=== PATIENT | female | born 1955 | race Caucasian/White ===

== ENCOUNTER 2023-03-09 11:08 | Day surgery (SDC) | payer OTHER, MEDICARE ==
[2023-03-09] VITALS (10 sets, daily range): BP systolic 130–167; BP diastolic 78–97
[~2023-03-09] VITALS: Ht 157.5 cm; Wt 52.9 kg
--- NOTE | 2023-03-09 12:12 | NUR ---
[facility] via wheelchair. History, Chart, Medications and Allergies reviewed before start of procedure.Lungs clear T/O to Auscultation.Moist, nonproductive cough noted-pt states that it is from her "allergies." Patient confirms NPO status and agrees with scheduled surgery. Patient States Post-Procedure ride home has been arranged.
--- NOTE | 2023-03-09 12:45 | NUR ---
DR. BROUSSARD AT BEDSIDE TO PLACE BLOCK TO LEFT LOWER EXTREMITY. PT MED WITH FENTANYL 50 MCG IVP X 1 AND VERSED 2 MG IVP X 1 FOR PROCEDURE. SEE ANESTHESIA RECORD FOR MED DOCUMENTATION.
--- NOTE | 2023-03-09 15:57 | NUR ---
Patient up with SBA. Gait steady with minimal weight bearing to left ankle. Discharge instructions reviewed with patient. Patient verbalizes understanding. Copy given to patient to take home. Patient States Post-Procedure ride home has been arranged. Discharged via wheelchair to private car for ride home.
== END 2023-03-09 15:47 | disposition home or self-care (01) ==
LOC: ORSCMMR 11:08 → ORD 12:30 → ORSCMMR 12:30
PROVIDERS: Orthopaedic Surgery
PROC: 0QSK04Z Reposition Left Fibula with Internal Fixation Device, Open Approach (ICD-10-PCS; principal; 2023-03-09 12:30)
PROC: 0QSHXZZ Reposition Left Tibia, External Approach (ICD-10-PCS; principal; 2023-03-09 12:30)
DX: S82.842A Displaced bimalleolar fracture of left lower leg, initial encounter for closed fracture (principal); W01.0XXA Fall on same level from slipping, tripping and stumbling without subsequent striking against object, initial encounter; F17.210 Nicotine dependence, cigarettes, uncomplicated; Z85.72 Personal history of non-Hodgkin lymphomas
CPT/HCPCS: C1713; J0690; J1100; J1885; J2250; J2405; J2704; J3010; J7120

== ENCOUNTER 2025-02-28 11:32 | Inpatient (IN) | payer OTHER ==
[~2025-02-28] VITALS: Ht 160 cm; Wt 54.6 kg
[2025-02-28 12:14] LABS: BASOPHILS ABSOLUTE AUTO 0.03 K/mm3 (0.00-0.23); BASOPHILS PERCENT AUTO 0 % (0-2); EOSINOPHILS PERCENT AUTO 0 % (0-6); Hematocrit 40.1 % (33.0-51.0); Hemoglobin 14.5 g/dL (11.5-16.0); IMMATURE GRAN ABSOLUTE AUTO 0.06 K/mm3 (0.00-0.10); IMMATURE GRAN PERCENT AUTO 1 % (0-1); LYMPHOCYTES ABSOLUTE AUTO 0.93 K/mm3 (0.84-5.20); LYMPHOCYTES PERCENT AUTO 9 % (21-46); MONOCYTES ABSOLUTE AUTO 0.97 K/mm3 (0.16-1.47); MONOCYTES PERCENT AUTO 10 % (4-13); Mean Corpuscular HGB 36.3 pg (26.0-34.0); Mean Corpuscular HGB Conc 36.2 g/dL (31.5-36.5); Mean Corpuscular Volume 101 fL (80-100); NEUTROPHILS ABSOLUTE AUTO 8.15 K/mm3 (1.96-9.15); NEUTROPHILS PERCENT AUTO 80 % (41-73); Platelet Count 253 K/mm3 (150-400); RDW Coefficient Variation 11.9 % (11.7-14.2); RDW Standard Deviation 43.6 fL (35.1-46.3); Red Blood Cell Count 3.99 M/mm3 (3.80-5.20); White Blood Cell Count 10.14 K/mm3 (4.00-11.30)
[2025-02-28 12:22] LABS: Source, Urine Clean Catch
[2025-02-28 12:25] LABS: Appearance, Urine Cloudy (Clear); Bilirubin, Urine Neg (Neg); Blood, Urine 4+ (Neg); Color, Urine Yellow (P-Yellow); Glucose Qualitative, Urine Neg (Neg); Ketones, Urine 3+ (Neg); Leukocyte Esterase, Urine 2+ (Neg); Nitrite, Urine Pos (Neg); Protein, Urine 2+ (Neg); Urobilinogen, Urine NORM (Normal)
[2025-02-28 12:29] LABS: International Normalized Ratio 0.91; Prothrombin Time Results 9.8 Sec (9.7-11.5)
[2025-02-28 12:33] LABS: White Blood Cells, Urine 50-100 /hpf (0-5)
[2025-02-28 12:34] LABS: Bacteria Many /hpf; Squamous Epithelial Cells Few /hpf (Few)
[2025-02-28 12:41] LABS: U Amphetamine Screen Not Detected; U Barbituate Screen Not Detected; U Benzodiazapine Screen Not Detected; U Buprenorphine Screen Not Detected; U Cannabinoids Screen Not Detected; U Cocaine Screen Not Detected; U Methadone Screen Not Detected; U Methamphetamine Screen Not Detected; U Opiates Screen Not Detected; U Oxycodone Screen Not Detected; U Phencyclidine Screen Not Detected
[2025-02-28 12:46] LABS: Albumin, Blood 3.7 g/dL (3.4-5.0); Albumin/Globulin Ratio 1.5 (0.8-1.8); Bilirubin, Total 0.4 mg/dL (0.1-1.0); Bun/Creatinine Ratio 22.1 (12.0-20.0); Calcium, Blood 9.1 mg/dL (8.5-10.1); Creatinine, Blood 0.86 mg/dL (0.40-1.00); Globulin, Blood 2.5 g/dL (2.2-4.0); Potassium, Blood 3.6 mmol/L (3.5-5.5); Thyroid Stimulating Hormone 0.88 uIU/mL (0.360-4.800); Total Protein, Blood 6.2 g/dL (6.4-8.2)
[2025-02-28] MEDS ORDERED: CefTRIAXone Sodium 1,000 MG in NS 100 ML IV ONE (13:20)
[2025-02-28 18:03] VITALS: BP 157/81
--- NOTE | 2025-02-28 18:43 | NUR ---
pt arrived to 351 via cart from ED, she was able to stand with assist, moved very slow, she is a/ox3, forgetful, pleasant and cooperative with care, follows commands well, denies pain at this time, right shoulder is sore if she attempts to move it, has significant bruise to right shoulder, lungs are clear in upper field on left side, dim on right side all judge, left base is dim, on r/a, no cough noted, hrr, no edema noted, ppp +1, cap refill<3 sec, vs stable, afebrile, piv to rac site is clear and patent, btx4, abd flat soft nontender, voids via bsc, skin c/w/d, except for bruising, sabrina, needs assist with transfer two person assist, and shuffles her feet, reports she takes no medications at this time. oriented to room layout and call system.
[2025-02-28 19:45] VITALS: BP 148/81
[2025-03-01 04:50] VITALS: BP 139/83
--- NOTE | 2025-03-01 05:15 | NUR ---
PT A&O X2, CAN NOT FOLLOW SIMPLE DIRECTION, DOES NOT PROTECT RIGHT SHOULDER. SLING PLACED THIS AM. PT WITH PAIN ONLY IF ARM IS PALPATATED. PT HAS SHUFFLING GAIT, ASSIST WITH ALL MOBILITY. SCD'S WORN PART OF NIGHT. VS WNL, PT CONTINENT AT FIRST OF SHIFT AND THEN HAD INCONTINENT EPISODE LATER. DOES NOT USE CALL SYSTEM APPROPRIATLY. PT LIVES ALONE, AND FAMILY MAY NEED TO INCREASE ASSISTANCE.
[2025-03-01 05:35] LABS: BASOPHILS ABSOLUTE AUTO 0.03 K/mm3 (0.00-0.23); BASOPHILS PERCENT AUTO 0 % (0-2); EOSINOPHILS ABSOLUTE AUTO 0.06 K/mm3 (0.00-0.68); EOSINOPHILS PERCENT AUTO 1 % (0-6); Hematocrit 36.9 % (33.0-51.0); Hemoglobin 13.3 g/dL (11.5-16.0); IMMATURE GRAN ABSOLUTE AUTO 0.07 K/mm3 (0.00-0.10); IMMATURE GRAN PERCENT AUTO 1 % (0-1); LYMPHOCYTES ABSOLUTE AUTO 1.49 K/mm3 (0.84-5.20); LYMPHOCYTES PERCENT AUTO 17 % (21-46); MONOCYTES PERCENT AUTO 9 % (4-13); Mean Corpuscular HGB 36.4 pg (26.0-34.0); Mean Corpuscular Volume 101 fL (80-100); Mean Platelet Volume 9.2 fL (9.1-12.4); NEUTROPHILS ABSOLUTE AUTO 6.17 K/mm3 (1.96-9.15); NEUTROPHILS PERCENT AUTO 72 % (41-73); Platelet Count 215 K/mm3 (150-400); RDW Coefficient Variation 11.8 % (11.7-14.2); RDW Standard Deviation 43.3 fL (35.1-46.3); Red Blood Cell Count 3.65 M/mm3 (3.80-5.20); White Blood Cell Count 8.62 K/mm3 (4.00-11.30)
[2025-03-01 05:55] LABS: Albumin, Blood 3.1 g/dL (3.4-5.0); Albumin/Globulin Ratio 1.3 (0.8-1.8); Bilirubin, Total 0.5 mg/dL (0.1-1.0); Bun/Creatinine Ratio 20.2 (12.0-20.0); Calcium, Blood 8.1 mg/dL (8.5-10.1); Creatinine, Blood 0.65 mg/dL (0.40-1.00); Globulin, Blood 2.3 g/dL (2.2-4.0); Potassium, Blood 3.1 mmol/L (3.5-5.5); Total Protein, Blood 5.4 g/dL (6.4-8.2)
[2025-03-01 07:39] VITALS: BP 134/78
[2025-03-01] MEDS ORDERED: Potassium Chloride 20 MEQ TabCR PO ONE (09:00)
[2025-03-01] MEDS ORDERED: Enoxaparin 30 MG/0.3 ML SYR SC SCH (09:00)
[2025-03-01] MEDS ORDERED: Enoxaparin 40 MG/0.4 ML SYR SC SCH (09:00)
--- NOTE | 2025-03-01 12:16 | NUR ---
REFERRAL CONTACTED DR. FERNÁNDEZ CONTACTED ABOUT REFERRAL
[2025-03-01] MEDS ORDERED: CefTRIAXone Sodium 1,000 MG in NS 100 ML IV SCH (14:29)
[2025-03-01 14:32] VITALS: BP 130/77
[2025-03-01] MEDS ORDERED: NS 250 ML IV PRN (15:25)
--- NOTE | 2025-03-01 16:17 | NUR ---
PLAN- 1] TT DR FERNÁNDEZ WHO SAW PATIENT AND STATED THAT IF SHE DOESNT WANT TO WEAR THE SLING THAT ITS OK AND THAT NO IMOBILIZER NEEDED. 2] TT OT, THEY WILL EVAL ON TUESDAY DUE TO STAFFING AND CURRENT INFECTION 3] TT FAMILY THEY ARE GLAD FOR CHANCE FOR PATIENT TO GET IV ABX AND HOPEFULLY IMPROVE BEFOR EVAL. THEY -[facility]- WILL BE HERE NOON 03/02 TO VISIT WITH CM OR ON TUESDAY 4] TT FLOOR SUP ABOUT NECESSITY OF A SITTER TO KEEP PT SAFE IN CURRENT MENTAL AND PHYSICAL CONDITION.
[2025-03-01 19:25] VITALS: BP 157/94
--- NOTE | 2025-03-02 04:36 | NUR ---
Mover Helper Shift Summary Patient admitted for UTI. Alert and oriented x2. Patient has pure wick in place. Broken right collar bone with bruising on shoulder and sling in place although not frequently used. Patient has sitter for frequently attempting to get out of bed and frequent urination. Patient resting quietly with few interruptions. Call light within reach. Bed rails up x3. Bed in lowest position for safety. Will continue to monitor.
--- NOTE | 2025-03-02 05:08 | NUR ---
NURSE PRECEPTOR STUDENT NOTE. I HAVE WORKED ALONG SIDE OF AND HAD READ HER DOCUMENTATION AND I AGREE WITH THE ABOVE INFO
[2025-03-02 05:41] VITALS: BP 145/85
[2025-03-02 06:09] LABS: BASOPHILS ABSOLUTE AUTO 0.03 K/mm3 (0.00-0.23); BASOPHILS PERCENT AUTO 0 % (0-2); EOSINOPHILS ABSOLUTE AUTO 0.04 K/mm3 (0.00-0.68); EOSINOPHILS PERCENT AUTO 1 % (0-6); Hematocrit 39.8 % (33.0-51.0); IMMATURE GRAN ABSOLUTE AUTO 0.06 K/mm3 (0.00-0.10); IMMATURE GRAN PERCENT AUTO 1 % (0-1); LYMPHOCYTES ABSOLUTE AUTO 1.42 K/mm3 (0.84-5.20); LYMPHOCYTES PERCENT AUTO 18 % (21-46); MONOCYTES ABSOLUTE AUTO 0.92 K/mm3 (0.16-1.47); MONOCYTES PERCENT AUTO 12 % (4-13); Mean Corpuscular HGB Conc 35.2 g/dL (31.5-36.5); Mean Corpuscular Volume 100 fL (80-100); Mean Platelet Volume 9.1 fL (9.1-12.4); NEUTROPHILS ABSOLUTE AUTO 5.46 K/mm3 (1.96-9.15); NEUTROPHILS PERCENT AUTO 69 % (41-73); Platelet Count 245 K/mm3 (150-400); RDW Coefficient Variation 11.6 % (11.7-14.2); RDW Standard Deviation 42.3 fL (35.1-46.3); White Blood Cell Count 7.93 K/mm3 (4.00-11.30)
[2025-03-02 06:40] LABS: Bun/Creatinine Ratio 12.9 (12.0-20.0); Calcium, Blood 8.6 mg/dL (8.5-10.1); Creatinine, Blood 0.62 mg/dL (0.40-1.00); Potassium, Blood 3.6 mmol/L (3.5-5.5)
[2025-03-02 07:37] VITALS: BP 165/79
[2025-03-02] MEDS ORDERED: Folic Acid 1 MG TAB PO SCH (12:00)
[2025-03-02] MEDS ORDERED: Thiamine HCl 100 MG Tab PO SCH (12:00)
[2025-03-02] MEDS ORDERED: Losartan Potassium 25 MG Tab PO SCH (12:00)
[2025-03-02] MEDS ORDERED: HyDROXyzine HCl 25 MG Tab PO PRN (14:50)
[2025-03-02] MEDS ORDERED: HydrALAZINE HCl 25 MG Tab PO PRN (14:50)
[2025-03-02 15:34] VITALS: BP 138/86
[2025-03-02] MEDS ORDERED: QUEtiapine Fumarate 25 MG Tab PO PRN (16:55)
--- NOTE | 2025-03-02 16:55 | NUR ---
SHIFT SUMMARY PT AO TO SELF, 1 ASSIST WITH THE FWW. DOES NOT FOLLOW DIRECTIONS WELL. IMPULSIVE, 1:1 SITTER AT THE BS. PT UP TO CHAIR AND BACK TO BED AGAIN SEVERAL TIMES. MEDICATED PER THE EMAR. DOES NOT CALL. IRRITABLE WITH STAFF. BA ON. REPOSITIONS SELF IN BED. DOES NOT USE SLING, CANNOT SEEM TO REMEMBER TO USE IT. PROVIDER AWARE OF ALL OF THE ABOVE. CALL LIGHT WITHIN REACH, BED LOCKED AND IN THE LOWEST POSITION. WILL REPORT TO ONCOMING NURSE.
[2025-03-02] MEDS ORDERED: Nicotine 14 MG PATCH TOP SCH (17:10)
[2025-03-02 19:55] VITALS: BP 146/83
--- NOTE | 2025-03-03 04:11 | NUR ---
Human Capital Consultant Shift Summary Patient admitted for UTI. Patient started the night alert and oriented to self and place. As the night progressed the patient became less oriented and was only oriented to self. Patient was having hallucinations of being in [place]. Patient has a broken right clavical with a large bruise on right shoulder. Patient refused parts of assessment. Patient agitated with staff, frequenlty cursing at them although apologizing after. Resting quietly intermittenly with one to one sitter. agitation increased and sitter walked patient with walker into the hallway and back to bed. Currently watching TV in bed. Call light in reach. Bed rails up x3. Will continue to monitor.
[2025-03-03 04:15] VITALS: BP 143/87
--- NOTE | 2025-03-03 04:23 | NUR ---
NURSE STUDENT PRECEPTOR NOTE. I HAVE WORKED ALONG SIDE OF/WITH STUDENT AND HAVE READ AND AGREE WITH HER DOCUMENTATION.
[2025-03-03 06:02] LABS: Albumin, Blood 3.1 g/dL (3.4-5.0); Albumin/Globulin Ratio 1.1 (0.8-1.8); Bilirubin, Total 0.4 mg/dL (0.1-1.0); Calcium, Blood 8.8 mg/dL (8.5-10.1); Creatinine, Blood 0.6 mg/dL (0.40-1.00); Globulin, Blood 2.8 g/dL (2.2-4.0); Potassium, Blood 3.3 mmol/L (3.5-5.5); Total Protein, Blood 5.9 g/dL (6.4-8.2)
[2025-03-03] MEDS ORDERED: Potassium Chloride 20 MEQ TabCR PO ONE (09:00)
[2025-03-03 12:02] VITALS: BP 120/72
[2025-03-03 15:21] VITALS: BP 113/68
--- NOTE | 2025-03-03 17:25 | NUR ---
SHIFT SUMMARY PT AOX2, 1 ASSIST WITH THE FWW. LESS IMPULSIVE THIS SHIFT BUT STILL CONFUSED. 1:1 SITTER. PT HAS HAD NO ACUTE COMPLAINTS, SHE HAS SLEPT MOST OF THE MORNING. REPOSITIONED THROUGHOUT THE SHIFT. CALL LIGHT WITHIN REACH, BED LOCKED IN THE LOWEST POSITION.
[2025-03-03 19:16] VITALS: BP 127/75
[2025-03-03] MEDS ORDERED: QUEtiapine Fumarate 50 MG TAB PO SCH (21:00)
[2025-03-04 04:08] VITALS: BP 102/72
--- NOTE | 2025-03-04 04:11 | NUR ---
PROGRESS MAN SHIFT SUMMARY PATIENT ADMITTED FOR UTI. ALERT AND ORIENTED X2. EASILY AGITATED WITH STAFF. SEROQUEL GIVEN TO HELP WITH AGITATION. PATIENT WALKED IN THE MU[address] WAY WITH WALKER AND STAFF ASSISTANCE AND BECAME AGITATED WHEN STAFF REFUSED TO LET HER WALK OUTSIDE. PATIENT RESTED QUIETLY IN HER BED FOR PART OF THE NIGHT, NOW RESTING IN RECLINER. CHAIR ALARM ON FOR SAFETY. CALL LIGHT WITHIN REACH. WILL CONTINUE TO MONITOR.
--- NOTE | 2025-03-04 04:56 | NUR ---
NURSE STUDENT PRECEPTOR NOTE I HAVE WORKED ALONG SIDE OF AND WITH STUDENT AND HAVE READ AND AGREE WITH HER DOCUMENTATION
[2025-03-04 07:21] VITALS: BP 129/89
[2025-03-04 15:16] VITALS: BP 121/79
--- NOTE | 2025-03-04 17:16 | NUR ---
SHIFT SUMMARY NO ACUTE CHANGES, A/Ox2-3 WITH INTERMITTENT CONFUSION AND EASILY AGITATED AT TIMES. PT DENIES PAIN. TREATED FOR AGITATION X1 PER EMAR - PT VERBALLY AGRESSIVE AND AGITATED SHE COULD NOT LEAVE FACILITY TO SMOKE A CIGARETTE. PT SCORED 11/30 ON MME - PLAN FOR PT TO DISCHARGE WITH 24/7 CARE PROVIDED BY FAMILY AND POSSIBLE NEED FOR GUARDIANSHIP. LIGHT ARMORED RECONNAISSANCE OFFICER WORKING WITH FAMILY. GOOD APPETITE. PT IS FORGETFUL TO LIMITATIONS - BED ALARM OR CHAIR ALARM MUST BE IN PLACE FOR PT SAEFTY. FORGETS TO USE FWW. PT CURRENTLY USING RESTROOM WITH ANDROID FRAMEWORK DEVELOPER ASSISTANCE.
[2025-03-04 20:54] VITALS: BP 129/83
--- NOTE | 2025-03-05 05:28 | NUR ---
SHIFT SUMMARY PT HAS BEEN RESTING COMFORTABLY IN BED OVERNIGHT. PT HAS BEEN AOX3, CALM AND COOPERATIVE, ALBEIT FORGETFUL TO LIMITATIONS OFTEN. PT HAS BEEN REDIRECTABLE. SHE HAS BEEN 1PA W/ FWW. PT HAS HAD NO COMPLAINTS. NO ACUTE EVENTS OVERNIGHT.
[2025-03-05 06:13] VITALS: BP 118/74
[2025-03-05 07:33] VITALS: BP 136/81
--- NOTE | 2025-03-05 10:41 | NUR ---
SONYA CONSULT CALL TO DR. HASSAN TO FOLLOW UP ON GUARDIANSHIP CONSULT SENT TO ER YESTERDAY. VOICEMAIL LEFT ON CELL PHONE INFORMING OF ROOM NUMBER, INTENT TO DISCHARGE TODAY, AND REQUEST FOR CALL BACK.
[2025-03-05] MEDS ORDERED: FOLI1 PO (11:47)
[2025-03-05] MEDS ORDERED: LOSA25 PO (11:47)
[2025-03-05] MEDS ORDERED: Seroquel Xr50 MG PO (11:48)
[2025-03-05] MEDS ORDERED: B-1100 M2 PO (11:49)
[2025-03-05] MEDS ORDERED: Acetaminophen650 M1 PO (11:50)
--- NOTE | 2025-03-05 12:18 | NUR ---
THIS RN SPOKE WITH DR. MAY ON PHONE WHO REPORTS HE WILL SEE PT AFTER LUNCH ON 03/05/25.
--- NOTE | 2025-03-05 12:37 | NUR ---
NEW PCP SPOKE WITH SON TATIANA. PATIENT ESTABLISHED CARE WITH [facility] IN [place] FOR PCP. [facility] REQUESTED FOR DISCHARGE MEDICATIONS. CHART UPDATED.
--- NOTE | 2025-03-05 15:44 | NUR ---
PT DISCHARGED TO [facility] HOME. PT UNFIT TO CARE FOR SELF AND AGREES TO BE DISCHARGED TO FAMILY'S HOME AND [facility] AND SIGNIFICANT OTHER AGREE TO PROVIDE CARE. DISCHARGE PACKET REVIEWED WITH PT AND PT BROTHER. IV REMOVED BY MARSHA, SITE APPEARS WNL. MEDS FAXED TO [facility]. PT WHEELED DOWN TO HER BROTHERS CAR BY MARSHA. PT ABLE TO STAND AMBULATE TO USING FWW.
== END 2025-03-05 15:40 | disposition home health service (06) | DRG 689 ==
LOC: ER 11:32 → MEDS 11:33
PROVIDERS: Internal Medicine; Student in an Organized Health Care Education/Training Program; ADMIT Family Medicine
DX: N39.0 Urinary tract infection, site not specified (principal); G93.41 Metabolic encephalopathy; F10.27 Alcohol dependence with alcohol-induced persisting dementia; I10 Essential (primary) hypertension; S42.031A Displaced fracture of lateral end of right clavicle, initial encounter for closed fracture; W18.39XA Other fall on same level, initial encounter; Y92.000 Kitchen of unspecified non-institutional (private) residence as the place of occurrence of the external cause; G30.9 Alzheimer's disease, unspecified; F02.C0 Dementia in other diseases classified elsewhere, severe, without behavioral disturbance, psychotic disturbance, mood disturbance, and anxiety; Z88.2 Allergy status to sulfonamides
CPT/HCPCS: 29105; 36415; 51701; 70450; 71045; 73030; 80048; 80053; 81001; 82140; 82550; 84443; 84484; 85025; 85610; 93005; 93010; 96365-59; 97129; 97161; 97165; 97530; 99285-25; A9270; G0378; J0696; J1650; J7050